=== PATIENT | male | born 1980 ===

== ENCOUNTER 2018-08-24 19:16 | Outpatient (CLI) | payer MEDICAID ==
[2018-08-24 19:38] LABS: BASOPHILS # (AUTO) 0.2 X10'3 (0-0.2); BASOPHILS % (AUTO) 1.9 % (0-1); EOSINOPHILS # (AUTO) 0.3 X10'3 (0-0.9); EOSINOPHILS % (AUTO) 3.4 % (0-6); HEMATOCRIT 39.9 % (42.0-52.0); HEMOGLOBIN 13.7 g/dl (14.0-17.9); LYMPHOCYTES # (AUTO) 2.9 X10'3 (1.1-4.8); LYMPHOCYTES % (AUTO) 33.4 % (21-51); MEAN CORPUSCULAR HEMOGLOBIN 30.5 PG (27.0-31.0); MEAN CORPUSCULAR HGB CONC 34.5 g/dL (33.0-36.5); MEAN CORPUSCULAR VOLUME 88.4 FL (78-98); MEAN PLATELET VOLUME 10.5 FL (7.4-10.4); MONOCYTES % (AUTO) 11.4 % (2-12); NEUTROPHILS # (AUTO) 4.3 X10'3 (1.8-7.7); NEUTROPHILS % (AUTO) 49.9 % (42-75); PLATELET COUNT 200 X10'3 (140-440); RED BLOOD COUNT 4.51 X10'6 (4.70-6.10); RED CELL DISTRIBUTION WIDTH 12.6 % (11.5-14.5); WHITE BLOOD COUNT 8.6 X10'3 (4.5-11.0)
[2018-08-24 19:42] LABS: ALANINE AMINOTRANSFERASE 35 U/L (12-78); ALBUMIN/GLOBULIN RATIO 1.3 (1.1-1.5); ALKALINE PHOSPHATASE 74 IU/L (46-116); ANION GAP 7 (8-16); ASPARTATE AMINO TRANSFERASE 20 U/L (10-37); BILIRUBIN,TOTAL 0.4 MG/DL (0.1-1.0); BLOOD UREA NITROGEN 16 MG/DL (7-18); BUN/CREATININE RATIO 14.8 (5.4-32.0); C-REACTIVE PROTEIN 0.27 MG/DL (0.0-0.5); CALCIUM 8.8 MG/DL (8.5-10.1); CHLORIDE 105 MMOL/L (99-107); CREATINE KINASE 86 U/L (39-308); CREATININE 1.08 MG/DL (0.60-1.10); SODIUM 142 MMOL/L (135-145); TOTAL CARBON DIOXIDE 29.7 MMOL/L (24-32); eGFR 77 ML/MIN
[2018-08-24 19:44] LABS: GLUCOSE 76 MG/DL (70-104); POTASSIUM 4.3 MMOL/L (3.5-5.1)
[2018-08-24 20:19] LABS: PLATELET ESTIMATE NORMAL
[2018-08-24 20:20] LABS: LARGE PLATELETS MANY
== END 2018-08-24 23:59 | disposition home or self-care (01) ==
LOC: LAB SPEC 19:16
PROVIDERS: ATTEND Internal Medicine Infectious Disease
DX: L03.032 Cellulitis of left toe (principal)
CPT/HCPCS: 36415; 80053; 82550; 85025; 85651; 86140